=== PATIENT | male | born 1965 | race Caucasian/White ===

== ENCOUNTER 2023-12-28 14:41 | Observation (INO) | payer MEDICAID, SELFPAY ==
[2023-12-28] VITALS (19 sets, daily range): BP systolic 129–170; BP diastolic 54–104; PULSE 59–129; RESP 15–28; TEMP 35.4–37.4; O2SAT 91–100
--- NOTE | ~2023-12-28 | XR_ITS ---
EXAMINATION: XR chest 1V portable DATE: 12/28/2023 15:12 INDICATION: Shortness of breath. Cough. TECHNIQUE: A single frontal view of the chest was obtained. COMPARISON: None. FINDINGS: There is no pneumonia, pleural effusion, or pneumothorax. The heart size is normal. IMPRESSION: 1. No acute cardiopulmonary disease. Reviewed, dictated and finalized at location E.
[2023-12-28] MEDS: methylPREDNISolone SOD SUCC 125 MG VIAL IV PUSH (15:17)
[2023-12-28 15:20] LABS: Basophils Absolute Auto 0.1 K/mm3 (0.0-0.1); Basophils Percent Auto 0.4 % (0.2-1.2); Eosinophils Percent Auto 0.3 % (0-4.4); Hematocrit 43.3 % (42.0-52.0); Hemoglobin 14.5 g/dL (14.0-18.0); Immature Granulocyte Absolute 0.04 K/mm3 (0.00-0.031); Immature Granulocyte Percent A 0.3 % (0-0.5); Lymphocytes Absolute Auto 0.21 K/mm3 (0.9-3.2); Lymphocytes Percent Auto 1.8 % (18.3-44.2); Mean Corpuscular HGB Conc 33.5 g/dl (32-36); Mean Corpuscular Hemoglobin 31.5 pg (26-34); Mean Corpuscular Volume 93.9 fl (80-100); Mean Platelet Volume 9.9 fl (7.4-10.4); Monocytes Absolute Auto 0.3 K/mm3 (0.1-0.6); Monocytes Percent Auto 2.6 % (2.6-8.5); Neutrophils Percent Auto 94.6 % (45.5-73.1); Platelet Count Result 245 k/mm3 (150-375); Red Blood Count 4.61 M/mm3 (4.6-6.20); Red Cell Distribution Width 12.9 % (11.5-14.5); White Blood Count 11.7 K/mm3 (4.5-10.0)
--- NOTE | 2023-12-28 15:27 | ED.SOB ---
HPI - SOB/Dyspnea General Chief Complaint: Shortness of Breath/Dyspnea Stated Complaint: SOB Time Seen by Provider: 12/28/23 14:57 History of Present Illness HPI Narrative: patient is a 58-year-old male who presents the ER with shortness of breath. He has history of COPD. He is not oxygen dependent. He was found to be hypoxic upon arrival here. He has been having worsening wheezing. Patient is in town from [facility] to see his son graduate. No improvement with his albuterol or 20 mg of prednisone that he took earlier. Denies fevers or chills or sweats. No known sick contacts. Shortness of breath is worsened by exertion. Patient had an exacerbation of his COPD a month ago and had 10 days of 20 mg prednisone, he paid out of pocket to refill it today because he notices shortness of breath was worsening. Patient noticed that his symptoms also worsened yesterday after going to his son's graduation [place] ceremony. Related Data Allergies Allergy/AdvReac Type Severity Reaction Status Date / Time No Known Allergies Allergy Verified 12/28/23 15:16 Review of Systems Review of Systems: All systems reviewed & are unremarkable except as noted in HPI and below Constitutional: Constitutional: Reports no additional constitutional complaints ENT: Reports system reviewed and no additional complaints, except as documented Cardiovascular: Cardiovascular: Reports no additional cardiovascular complaints Respiratory: Respiratory: Denies chest congestion, Reports cough (productive), Reports dyspnea and Reports wheezing Gastrointestinal: Gastrointestinal: Reports no additional gastrointestinal complaints Musculoskeletal: Musculoskeletal: Reports no additional musculoskeletal complaints PMFSH Past Medical History Medical History (Updated 12/28/23 @ 18:04 by Lucian Soler MD) COPD (chronic obstructive pulmonary disease) Surgical History Surgical History (Updated 12/28/23 @ 15:28 by Lucian Soler MD) No pertinent past surgical history Exam Narrative: GENERAL: Well-appearing, well-nourished, and in no acute distress. HEAD: Normocephalic, atraumatic. ENT: Mucous membranes moist. CHEST: diffuse expiratory wheezing with frequent coughing. mild respiratory distress. HEART: tachycardic and regular. Normal peripheral pulses. ABDOMEN: Soft, nontender, nondistended. EXTREMITIES: Normal range of motion. No edema. SKIN: Warm, dry, no rash. NEURO: Alert and oriented x3. PSYCH: Normal mood and affect. Course Course Emergency Course: Wheezing significantly improved. It is been 45 minutes since finishing his hour long nebulizer treatment. During walking O2 study patient was able to walk 20 ft before he became hypoxic to 88% on room air remained at 80% until he got back to the room where he was still satting in the 80s on the monitor. After 5 minutes he has gone back up to 95% while on room air. His heart rate has reduced 130-115 beats per minute. Is recommended he stay in the hospital and be observed for COPD exacerbation. Vital Signs Vital signs: Vital Signs Temperature 97.3 F L 12/28/23 14:47 Pulse Rate 118 H 12/28/23 14:47 Respiratory Rate 22 H 12/28/23 14:47 Blood Pressure 134/87 12/28/23 14:47 Pulse Oximetry 91 12/28/23 14:47 Oxygen Delivery Room Air 12/28/23 14:47 Temperature 97.3 F L 12/28/23 14:47 Pulse Rate 111 H 12/28/23 15:40 Respiratory Rate 20 12/28/23 15:40 Blood Pressure 134/87 12/28/23 14:47 Pulse Oximetry 97 12/28/23 15:39 Oxygen Delivery Nasal Cannula 12/28/23 15:39 Oxygen Flow Rate 2 12/28/23 15:39 MDM - SOB/Dyspnea Lab Data 12/28/23 15:13 12/28/23 15:13 Labs: Lab Results 12/28/23 Range/Units 15:13 WBC 11.7 H (4.5-10.0) K/mm3 RBC 4.61 (4.6-6.20) M/mm3 Hgb 14.5 (14.0-18.0) g/dL Hct 43.3 (42.0-52.0) % MCV 93.9 (80-100) fl MCH 31.5 (26-34) pg MCHC 33.5 (32-36) g/dl RDW 12.9
[2023-12-28] MEDS: ALBUTEROL SULFATE NEB 2.5 MG/3 ML INH 15 MG INHALATION (15:35)
[2023-12-28 15:36] LABS: Alanine Aminotransferase 39 U/L (6-50); Albumin Level 5.2 g/dL (3.5-5.1); Alkaline Phosphatase 54 U/L (38-126); Anion Gap 12 mmol/L (4-12); Aspartate Amino Transferase 32 U/L (17-59); Blood Urea Nitrogen 10 mg/dL (9-20); Calcium 9.8 mg/dL (8.4-10.2); Carbon Dioxide 23 mmol/L (22-30); Chloride 105 mmol/L (98-107); Estimated CRCL calculation 103 ml/min; Estimated Glomerular Filt Rate > 60; Glucose 116 mg/dL (65-110); Potassium 4.1 mmol/L (3.4-5.0); Sodium 140 mmol/L (137-145)
[2023-12-28] MEDS: IPRATROPIUM BR 0.02% INH SOLN 0.5 MG/2.5 ML VIAL 1.5 MG INHALATION (15:36)
[2023-12-28] MEDS: MAGNESIUM SULF 2 GM/WATER 50ML 2 GM/50 ML BAG IVPB ×2 (18:18→21:51)
--- NOTE | 2023-12-28 19:06 | ADMGEN ---
This patient, Philipp Franco, was admitted to Medical Room 247-. Patient/family oriented to hospital policies and general routines including ID bracelet, bed and alarms, visiting hours, pain management, procedures, bathroom and other care routines, personal items, smoking policy, room service/diet, and visiting hours. Information on how to activate the Rapid Response Team has been discussed. Patient/Family are encouraged to report perceived risks to care and to ask questions if they do not understand what they are told or what they should do.
--- NOTE | 2023-12-28 19:26 | PM.IMHP ---
H&P: HPI History of Present Illness Date/Time: 12/28/23 19:26 Chief Complaint: Labored breathing Narrative: This is a 58-year-old male patient who lives in [facility] (heavy air pollution) and was traveling to this area for his son's graduation. Patient reports that yesterday he began having significant difficulty breathing. Patient has a reported history of COPD his only home medication is p.r.n. albuterol inhaler. He recently completed 10 day course of prednisone 20 mg daily and he received a refill prednisone after speaking his doctor when these new symptoms started back up again taking 1 dose earlier today. Patient denies any other significant medical problems. He reports he occasionally smokes marijuana not cigarettes. This is his 1st admission to the hospital and he has only had to come to the emergency department 1 prior time for similar difficulty breathing also when he was traveling to the [facility] for family event. Patient states that his difficulty breathing actually started 3 days ago after he cut grass and went to watch a basketball game with a friend who was smoking cigarettes. He states the cigarette smoke irritated him and he began to cough. He also noted that he had some minor cold symptoms around the same day. The following day he had worsening cough with mucus production. Yesterday his symptoms became very bothersome with increased work of breathing in the evening. Today patient was supposed to be at the graduation ceremony but his breathing was so bad he had to come to the emergency department. While in the ER he received 15 mg albuterol 1.5 mg ipratropium in an hour long nebulizer treatment and 125 mg IV Solu-Medrol. Patient was noted to be hypoxic in the emergency department both before treatment and with ambulation after treatment. Decision was made to admit patient to the hospital due to hypoxia and he was on 2 liters/minute in the ER. Chest x-ray was clear labs show mild white blood cell count elevation at 11.7 and glucose at 116 otherwise labs were normal. Patient was admitted for additional IV steroids and nebulizer treatments. I recommended IV magnesium prior to leaving the emergency department which the patient did receive. On discussion with patient, he has [id number] tachypnea with excessively labored breathing with abdominal and supraclavicular retractions while at rest. He also appeared to have dry mucous membranes. Ordered 1 L of IV fluids, 9 mL of DuoNeb (3 treatments) over 1 hour nebulized, repeat IV magnesium 2 g over 20 minutes and subcutaneous epinephrine 0.3 mg. Also ordered Singulair. Suspect this may be reactive airway disease exacerbated by allergens and a cold rather than COPD. Review of Systems Review of Systems: All systems reviewed & are unremarkable except as noted in HPI and below PMFSH Past Medical History Medical History COPD (chronic obstructive pulmonary disease) Surgical History Surgical History No pertinent past surgical history Family History Family History Father Chronic obstructive pulmonary disease Mother Gout Social History Social History Smoking status: Former smoker Tobacco type: cigarettes Alcohol intake: current Drinks per week: 3 Substance use: current Substance use type: marijuana Do You Feel Safe in your Home?: Yes Lack of Transportation: No Lack of Food: Never True Current Housing: I Have Housing Concerned About Future Housing: No Difficulty Paying Gas/Electric Bills: No Difficulty Paying for Meds: No Currently Unemployed: No Education: High School Diploma/GED Difficulty w/ Childcare or Family Care: No Spiritual care concerns: No Meds Home Medications and Allergies Home
[2023-12-28] MEDS: IPRATROPIUM 0.5 MG/ALBUTEROL SULFATE 2.5 MG AMPUL.NEB 3 ML 9 ML INHALATION (21:44)
[2023-12-28] MEDS: MONTELUKAST SODIUM 10 MG TABLET PO (21:50)
[2023-12-28] MEDS: EPINEPHrine HCL INJ 1 MG/ML AMPUL 0.3 MG SUB-Q (21:51)
[2023-12-28] MEDS: LACTATED RINGERS 1,000 ML 999 ML IV CONT (21:51)
[2023-12-28] MEDS: methylPREDNISolone SOD SUCC 125 MG VIAL 60 MG IV PUSH (23:06)
[2023-12-29] VITALS (9 sets, daily range): BP systolic 125–142; BP diastolic 80; PULSE 98–111; RESP 17–20; TEMP 36.8–36.9; O2SAT 93–99; BMI 31.3
[2023-12-29] MEDS: IPRATROPIUM 0.5 MG/ALBUTEROL SULFATE 2.5 MG AMPUL.NEB 3 ML INHALATION ×3 (02:11→13:12)
[2023-12-29 05:28] LABS: Basophils Percent Auto 0.3 % (0.2-1.2); Hematocrit 38.8 % (42.0-52.0); Immature Granulocyte Absolute 0.04 K/mm3 (0.00-0.031); Immature Granulocyte Percent A 0.6 % (0-0.5); Lymphocytes Absolute Auto 0.48 K/mm3 (0.9-3.2); Lymphocytes Percent Auto 6.6 % (18.3-44.2); Mean Corpuscular HGB Conc 33.5 g/dl (32-36); Mean Corpuscular Hemoglobin 31.2 pg (26-34); Mean Platelet Volume 10.2 fl (7.4-10.4); Monocytes Absolute Auto 0.3 K/mm3 (0.1-0.6); Monocytes Percent Auto 3.6 % (2.6-8.5); Neutrophils Absolute Auto 6.5 K/mm3 (1.3-6.7); Neutrophils Percent Auto 88.9 % (45.5-73.1); Platelet Count Result 242 k/mm3 (150-375); Red Blood Count 4.17 M/mm3 (4.6-6.20); Red Cell Distribution Width 12.9 % (11.5-14.5); White Blood Count 7.3 K/mm3 (4.5-10.0)
[2023-12-29] MEDS: methylPREDNISolone SOD SUCC 125 MG VIAL 60 MG IV PUSH ×2 (05:29→12:21)
[2023-12-29 05:43] LABS: Alanine Aminotransferase 32 U/L (6-50); Albumin Level 4.6 g/dL (3.5-5.1); Alkaline Phosphatase 47 U/L (38-126); Anion Gap 9 mmol/L (4-12); Aspartate Amino Transferase 29 U/L (17-59); Bilirubin,Total 0.4 mg/dL (0.2-1.3); Blood Urea Nitrogen 12 mg/dL (9-20); Calcium 9.4 mg/dL (8.4-10.2); Carbon Dioxide 21 mmol/L (22-30); Chloride 106 mmol/L (98-107); Estimated CRCL calculation 118 ml/min; Estimated Glomerular Filt Rate > 60; Glucose 144 mg/dL (65-110); Magnesium 2.3 mg/dL (1.6-2.3); Potassium 3.5 mmol/L (3.4-5.0); Sodium 136 mmol/L (137-145)
--- NOTE | 2023-12-29 16:51 | PM.DS ---
DS: Admitting Diagnosis Discharge Date 12/29/2023 Admitting Diagnosis COPD exacerbation DS: Discharge Diagnosis Discharge Diagnosis (1) COPD exacerbation: Code(s): J44.1 - Chronic obstructive pulmonary disease with (acute) exacerbation Status: Acute DS: Summary Hospital Course Reason for hospitalization: dyspnea Hospital Course: 58-year-old gentleman is visiting from [facility] for his son's graduation. He was exposed to secondhand smoke 2 days prior to admission. Started feeling more short of breath on the day of admission. Cough with thick white sputum. no chest pain or fevers or chills. No swelling. No orthopnea or. Received steroids and bronchodilators overnight. Feeling much better dairy. At his baseline. Ever ambulate in the [place] and perform ADLs independently without dyspnea. Tolerated his diet and wishes to go home. Vital signs remained stable and he did not require oxygen. He does have an Incruse Ellipta maintenance handler which he uses sporadically. He quit smoking 3 years ago. He understands the importance of avoiding inhaling heart papers, including cannabis, vaping, camp fires, and secondhand smoke. He understands the importance of using his maintenance inhaler every day. Laboratories remarkable for a fasting blood sugar 144 on the day of discharge after receiving steroids overnight. He was instructed to avoid refined sugar and flour while taking steroids. Time Spent with Patient Time attestation: Total time spent providing and/or coordinating discharge services: Exam Narrative: HEENT: sclerae nonicteric, pharyngeal mucosa pink and intact NECK: No JVD CHEST: Diffuse inspiratory and expiratory wheezes with prolonged expiratory phase. No crackles.. Normal effort. HEART: NL S1/S2, regular, no murmur ABDOMEN: BS+, soft, nontender, no mass, no bruits EXTREMITIES: No cyanosis, edema, or clubbing NEUROLOGIC: CN intact and symmetric to inspection. MUSCULOSKELETAL: Tone and strength symmetric. PSYCH: Alert. Oriented to person, place, and time. DS: Data Data Completed and Pending Labs on day of discharge: Labs from last 24 hours 12/29/23 04:49 WBC 7.3 RBC 4.17 L Hgb 13.0 L Hct 38.8 L MCV 93.0 MCH 31.2 MCHC 33.5 RDW 12.9 Plt Count 242 MPV 10.2 Immature Gran % (Auto) 0.6 H Neut % (Auto) 88.9 H Lymph % (Auto) 6.6 L [place] % (Auto) 3.6 Eos % (Auto) 0.0 Baso % (Auto) 0.3 Lymph # (Auto) 0.48 L [place] # (Auto) 0.3 Eos # (Auto) 0.0 Baso # (Auto) 0.0 Abs Immat Gran (auto) 0.04 H Absolute Neuts (auto) 6.5 Absolute Nucleated RBC 0.000 Nucleated RBC % 0.0 Sodium 136 L Potassium 3.5 Chloride 106 Carbon Dioxide 21 L Anion Gap 9 BUN 12 Creatinine 0.70 Estim Creat Clear Calc 118 Estimated GFR > 60 Glucose 144 H Calcium 9.4 Magnesium 2.3 Total Bilirubin 0.4 AST 29 ALT 32 Alkaline Phosphatase 47 Total Protein 7.0 Albumin 4.6 Discharge Plan Discharge Discharging Clinician: Teodoro Wallace Patient Disposition: Home, Self-Care Activity: as tolerated Diet: other - see discharge instructions Discharge Instructions: Avoid refined sugar and refined flour while taking prednisone. Take prednisone 20 mg tablets 3 tablets daily for a total of 7 days. Use Incruse Ellipta one inhalation every day. Avoid inhalation of hot vapors, including second-hand cigarette smoke. Stand Alone Forms: General Discharge Information Follow-up/Referrals: PHYSICIAN NOT ON STAFF,NONSTAFF [Primary Care Provider] - Call for Appointment ( Call for appointment with primary care physician) Discharge Medications: New Incruse Ellipta 62.5 mcg/actuation blister with device 1 inh inhalation DAILY Qty: 30 0RF Rx Instructions: He already has this at home. No need to fill today. Continued albuterol sulfate 90 mcg/actuation HFA aerosol inhaler 2 puff INHALATION Q6H PRN (Reason: wheezes) Changed pre
--- NOTE | 2023-12-29 18:50 | PC.NURSE ---
pt from [facility] requested prescriptions to be printed so he can get them filled at his regular [facility] pharmacy
== END 2023-12-29 18:10 | disposition home or self-care (01) ==
LOC: ANHED 18:04 → ANH2MED 18:50
PROVIDERS: Nurse Practitioner; Admitting Provider Internal Medicine; Emergency Provider Emergency Medicine; Visit Provider Internal Medicine
DX: J96.01 Acute respiratory failure with hypoxia (principal); J44.1 Chronic obstructive pulmonary disease with (acute) exacerbation; F12.90 Cannabis use, unspecified, uncomplicated; Z87.891 Personal history of nicotine dependence; Z79.51 Long term (current) use of inhaled steroids
CPT/HCPCS: 36415; 71045; 80053; 83735; 85025; 94640; 96372; 96374; 96375; 96376; 99285; A9270; G0378; J0171; J2919; J3475; J7120